=== PATIENT | female | born 1995 | race Caucasian/White ===

== ENCOUNTER 2021-01-05 10:41 | Day surgery (SDC) | payer BC ==
[2021-01-02 10:23] VITALS: BMI 22.0
[~2021-01-05 10:41] MED LIST: LACTATED RINGERS 1,000 ML IV SCH; LIDOCAINE 1% (10MG/ML) FOR IV START INTRADERMA PRN; MIDAZOLAM 2 MG/2 ML VIAL IV PRN; fentaNYL (PF) 50 MCG/ML 2 ML AMP IVP PRN
[2021-01-05] MEDS ORDERED: ONDANSETRON 4 MG/2 ML VIAL ONE ×2 (11:58→15:23)
[2021-01-05] MEDS ORDERED: ONDANSETRON 4 MG/2 ML VIAL IVP ONE ×2 (12:00→15:27)
[2021-01-05] MEDS ORDERED: DEXAMETHASONE SOD PHOSPHATE 4 MG/ML 1 ML VIAL IVP ONE (12:01)
[2021-01-05] MEDS ORDERED: MIDAZOLAM 2 MG/2 ML VIAL IVP ONE (12:31)
[2021-01-05] MEDS ORDERED: ROPIVACAINE 5 MG/ML 30 ML VIAL ONE (12:38)
[2021-01-05] MEDS ORDERED: PROPOFOL 10 MG/ML 20 ML VIAL IV ONE (12:38)
[2021-01-05] MEDS ORDERED: PHENYLEPHRINE-0.9% NACL SYG 1,000 MCG/10 ML SYRINGE ONE (12:38)
[2021-01-05] MEDS ORDERED: fentaNYL (PF) 50 MCG/ML 2 ML AMP ONE (12:38)
[2021-01-05] MEDS ORDERED: SUCCINYLCHOLINE CHLORIDE 100 MG/5 ML SYR IV ONE (12:38)
[2021-01-05] MEDS ORDERED: DEXAMETHASONE SOD PHOSPHATE 4 MG/ML 1 ML VIAL ONE (12:38)
[2021-01-05] MEDS ORDERED: LIDOCAINE 1% INJ 10MG/ML (20 ML MDV) ONE (12:38)
[2021-01-05] MEDS ORDERED: LACTATED RINGERS 1,000 ML IV ONE (14:14)
--- NOTE | 2021-01-05 14:29 | P.OP ---
Date of Procedure: 01/05/21 Procedure(s) Performed: PREOPERATIVE DIAGNOSES: 1. Right clavicle midshaft displaced fracture with 2 butterfly fragments POSTOPERATIVE DIAGNOSES: 1. Right clavicle midshaft displaced fracture with 2 butterfly fragments PROCEDURES PERFORMED: 1. Right clavicle open reduction and internal fixation using precontoured [employer]umed clavicle plate with nonlocking screws ANESTHESIA: General plus regional METALLURGICAL ENGINEERING TECHNICIAN: Lolita Rodriguez PA-C (assistance with: Patient positioning, retraction, exposure, hemostasis, excision, irrigation, closure, dressing) COMPLICATIONS: None ESTIMATED BLOOD LOSS: 25 cc TOURNIQUET: Not used DISPOSITION: To post-anesthesia care unit INDICATIONS: Yoanna is a 25-year-old female with a history of right clavicle fracture approximately 1 week ago. The fracture is about when he millimeters displaced superior to inferior and is tenting the skin. She was and is in severe pain. After much discussion of conservative versus surgical options, the patient wishes to proceed with surgical fixation. I have explained the details of this surgery thoroughly and also explained the potential risks and complications. These are inclusive of, but not limited to: bleeding, infection, scarring, discomfort, blood vessel and nerve damage, stiffness, weakness, need for further surgery, failure to relieve symptoms, persistence or worsening of problems, malunion, nonunion, hardware irritation, numbness inferior to the incision, , and other risks. The patient is aware of these risks and agrees to proceed with surgery. The consent form has been signed. PROCEDURE: Appropriate consent was obtained and the patient was transferred to the operating room and placed in the supine position. General anesthesia was initiated and after confirmation of such anesthesia, the patient was carefully placed in the beach chair position with a rolled towel beneath the right scapula. The head was carefully secured with padding and Coban wrap. Neck position was neutral. Pressure points were adequately padded. The patients right upper chest and arm were prepped and draped in the usual aseptic fashion using ChloraPrep. Ioban drape was used for skin protection and he received intravenous antibiotics approximately 20 minutes prior to the incision. Time out was called, confirming patient identity, side, procedure, and administration of antibiotics. Incision was created using a 15 blade along the anterior aspect of the right clavicle, centered over the fracture site. The length of the incision was approximately 12 cm. Careful dissection was performed using dissecting scissors through the subcutaneous tissue to detect and protect the superficial supercl avicular nerves, as much as possible. The trapezio-pectoral fascia was then incised using cautery. Hemostasis was meticulously maintained throughout the operation using Bovie electrocautery. Full thickness fascial flaps were created, exposing the fracture site. Hematoma and debris were removed as necessary to fully expose the fracture and allow for anatomic reduction. The fracture was moderately comminuted with 2 sizable butterfly fragments which were completely stripped of soft tissues and floating within the fracture hematoma. The first butterfly fragment was exposed, mobilized, and anatomically provisionally fixed to the distal fragment using a bone clamp. This fragment was then fixed securely using one 2.3 mm bicortical screw placed in lag fashion. The second butterfly fragment was from directly inferior off of the proximal fragment, which was reduced and clamped. Provisional pin fixation was attempted, but was unsuccessful and therefore cerclage provisional fixation usin g #2 FiberWire suture was performed, which secured this butterfly fragment adequately. This allowed the main fragments to be reduced anatomically and held with a bone clamp. The main proximal and distal fragments were assessed for alignment and once an acceptable alignment had and decided upon, a precontoured plate was placed over the fracture fragments and the plate was used to align the major proximal and distal fragments adequately. The reduction was held with a plate clamp on each side of the fracture once the proper plate was selected. The plate selected was a multi-hole locking/compression plate from [employer],. Once the plate was secured, the screw holes were drilled, sized, and filled with 3.5 mm cortical screws with bicortical purchase. Cerclage #2 FiberWire sutures were used over the plate and distal fragment as only 2 bicortical screws were able to be placed in the proximal fragment due to the third hole in the plate being blocked by the interfragmentary screw from the earlier fixation. The screws were placed with non-compression technique due to the comminution of the fracture. Final hand-tightening of the screws was performed and it was noted that the fracture remained anatomically reduced and was stable. Thorough irrigation was performed using antibiotic containing solution and final hemostasis was achieved. Meticulous closure of the fascia over the plate was then performed, with 0 Vicryl suture. Subcutaneous closure was with 3-0 Vicryl and skin cosmetic closure with running 3-0 Monocryl subcuticular followed by cyanoacrylate topical skin incision closure. The patient tolerated the procedure well. There was 25 cc blood loss. Wound was dressed with sterile bandage and arm was placed in a sling. The patient was transferred to recovery room in stable condition. Sponge and needle counts were correct.
[2021-01-05 14:49] VITALS: TEMP 97.4
[2021-01-05 15:44] VITALS: RESP 18
[2021-01-05 16:35] VITALS: BP 112/74; PULSE 84
--- NOTE | 2021-01-06 07:47 | P.ANPRN ---
Procedure Note - Anesthesia - Nerve Block Performed Right Interscalene Single Time Out Performed: Yes Date of Procedure: 01/05/21 Procedure Start Time: 12:30 Procedure Stop Time: 12:36 Location of Patient: PreOp Indication: Acute Post-Operative Pain, Requested by Surgeon Sedation Type: Sedate with meaningful contact maintained Preparation: Sterile Prep Position: Supine Needle Types: Pajunk Needle Gauge: 21 Ultrasound used to visualize needle placement: Yes Ultrasound used to observe medication spread: Yes Blood Aspirated: No Pain Paresthesia on Injection Noted: No Resistance on Injection: Normal Image Stored and Saved: Yes Events: Uneventful and Well Tolerated (ropivacaine 0.5% 20 mL plus dexamethasone 4 mg)
== END 2021-01-05 16:57 | disposition home or self-care (01) ==
LOC: OR 10:41
PROVIDERS: ATTEND Orthopaedic Surgery
DX: S42.021A Displaced fracture of shaft of right clavicle, initial encounter for closed fracture (principal); W01.0XXA Fall on same level from slipping, tripping and stumbling without subsequent striking against object, initial encounter; Y93.51 Activity, roller skating (inline) and skateboarding; Z88.0 Allergy status to penicillin
CPT/HCPCS: 64415; 81025; 76942; 23515; C1713; J2250; J1100; J0690; J2405; J2001; J3010; J2795; J2370; J0330; J2704; J1790